=== PATIENT | female | born 1955 | race Caucasian/White ===

== ENCOUNTER 2022-03-08 05:26 | Day surgery (SDC) | payer MEDICARE, BC ==
[~2022-03-08 05:26] MED LIST: Sodium Chloride 0.9% 10 ML Syringe FLUSH SCH
[2022-03-08] MEDS ORDERED: Midazolam 1 MG/ML 2 ML SDV IV ONE ×3 (05:27→06:33)
[2022-03-08] MEDS ORDERED: fentaNYL 100 MCG/2 ML SDV IV ONE ×3 (05:27→06:33)
[2022-03-08] MEDS ORDERED: Sodium Chloride 0.9% 10 ML Syringe FLUSH PRN (06:00)
[2022-03-08] MEDS ORDERED: Dextrose 5%-0.45% NaCl 1,000 ML IV SCH (06:00)
[2022-03-08] MEDS ORDERED: Midazolam 1 MG/ML 2 ML SDV ONE (06:14)
[2022-03-08] MEDS ORDERED: fentaNYL 100 MCG/2 ML SDV ONE (06:15)
== END 2022-03-08 08:35 | disposition home or self-care (01) ==
LOC: DL.ENDO 05:26
PROVIDERS: ATTEND Internal Medicine Gastroenterology
DX: K29.50 Unspecified chronic gastritis without bleeding (principal); K44.9 Diaphragmatic hernia without obstruction or gangrene; K31.7 Polyp of stomach and duodenum; I10 Essential (primary) hypertension; E78.5 Hyperlipidemia, unspecified; F41.1 Generalized anxiety disorder; F32.A Depression, unspecified; K21.9 Gastro-esophageal reflux disease without esophagitis; R73.9 Hyperglycemia, unspecified; Z88.0 Allergy status to penicillin; Z98.890 Other specified postprocedural states; Z79.899 Other long term (current) drug therapy
CPT/HCPCS: 43239; 87077; 88305; J2250; J3010; J7042

== ENCOUNTER 2023-09-08 05:45 | Day surgery (SDC) | payer MEDICARE, BC ==
[2023-09-08] MEDS ORDERED: Midazolam 1 MG/ML 2 ML SDV IV ONE (05:46)
[2023-09-08] MEDS ORDERED: fentaNYL 100 MCG/2 ML SDV IV ONE (05:46)
[2023-09-08] MEDS ORDERED: Midazolam 1 MG/ML 2 ML SDV ONE (06:16)
[2023-09-08] MEDS ORDERED: fentaNYL 100 MCG/2 ML SDV ONE (06:16)
[2023-09-08] MEDS: Dextrose 5%-0.45% NaCl 1,000 ML IV SCH (06:22)
[2023-09-08] MEDS: fentaNYL 100 MCG/2 ML SDV IV ONE ×2 (07:09→07:10)
[2023-09-08] MEDS: Midazolam 1 MG/ML 2 ML SDV IV ONE ×6 (07:10→07:22)
== END 2023-09-08 09:00 | disposition home or self-care (01) ==
LOC: DL.ENDO 05:45
PROVIDERS: ATTEND Internal Medicine Gastroenterology
DX: Z12.11 Encounter for screening for malignant neoplasm of colon (principal); I10 Essential (primary) hypertension; E78.5 Hyperlipidemia, unspecified; F41.9 Anxiety disorder, unspecified
CPT/HCPCS: G0121; J2250; J3010; J7799